=== PATIENT | female | born 1945 | race Native Hawaiian/Other Pacific Islander ===

== ENCOUNTER 2016-12-06 13:31 | Outpatient (CLI) | payer OTHER ==
[2016-12-06 13:49] LABS: PLATELET COUNT 262 K/uL (152-353)
[2016-12-06 13:57] LABS: POTASSIUM 3.5 mmol/L (3.6-5.2)
== END 2016-12-06 19:06 | disposition home or self-care (01) ==
LOC: LABW 13:31
PROVIDERS: Dermatology
DX: Z79.899 Other long term (current) drug therapy (principal); Z51.81 Encounter for therapeutic drug level monitoring
CPT/HCPCS: 36415; 80053; 85027

== ENCOUNTER 2017-06-29 10:21 | Outpatient (CLI) | payer OTHER | END 2017-06-29 23:30 | disposition home or self-care (01) | LOC: RAD 10:21 | DX: M19.041 Primary osteoarthritis, right hand (principal); M19.042 Primary osteoarthritis, left hand ==

== ENCOUNTER 2018-07-05 09:12 | Outpatient (CLI) | payer OTHER | END 2018-07-05 20:46 | disposition home or self-care (01) | LOC: LABW 09:12 | DX: E55.9 Vitamin D deficiency, unspecified (principal); M06.09 Rheumatoid arthritis without rheumatoid factor, multiple sites; R76.0 Raised antibody titer; Z79.899 Other long term (current) drug therapy | CPT/HCPCS: 36415; 82607; 82746; 83918 ==

== ENCOUNTER 2018-11-13 15:18 | Outpatient (CLI) | payer OTHER | END 2018-11-13 23:28 | disposition home or self-care (01) | LOC: RAD 15:18 | DX: J40 Bronchitis, not specified as acute or chronic (principal) ==

== ENCOUNTER 2018-12-19 09:05 | Outpatient (CLI) | payer OTHER | END 2018-12-19 21:36 | disposition home or self-care (01) | LOC: CT 09:05 | DX: J32.0 Chronic maxillary sinusitis (principal) ==